=== PATIENT | female | born 1950 | race Caucasian/White ===

== ENCOUNTER 2017-04-04 08:00 | Outpatient (CLI) | payer MEDICARE, OTHER ==
[2017-04-04 19:34] LABS: CALCIUM 9.4 mg/dL (8.5-10.3); CREATININE 0.7 mg/dL (0.4-1.0); POTASSIUM 4.1 mmol/L (3.5-5.0)
== END 2017-04-04 08:01 | disposition home or self-care (01) ==
LOC: LAB.WCP 08:00
PROVIDERS: ATTEND Family Medicine
DX: I10 Essential (primary) hypertension (principal)
CPT/HCPCS: 36415; 80048

== ENCOUNTER 2017-04-11 15:33 | Outpatient (CLI) | payer MEDICARE, OTHER ==
--- NOTE | 2017-04-13 18:17 | Mammography Report ---
DIGITAL BILATERAL SCREENING MAMMOGRAM: 04/11/2017 COMPARISON EXAMINATION: Mammogram 06/14/2014. TECHNIQUE: Routine CC and MLO projections were obtained of the breasts. FINDINGS: Parenchymal tissue within both breasts is extremely dense, which lowers the sensitivity of mammography; however, there are no dominant masses, suspicious microcalcifications, or secondary sig ns of malignancy. In comparison to the previous studies, there are no significant changes. IMPRESSION: No mammographic evidence of malignancy. PLAN: Screening mammography is recommended annually. BIRADS category 1 - negative. STANDARD QUALIFYING STATEMENTS 1. This examination was reviewed with the aid of Computed-Aided Detection (CAD). 2. A negative or benign imaging report should not delay biopsy if clinically suspicious findings are present. Consider surgical consultation if warranted. More than 5% of cancers are not identified b y imaging. 3. Dense breasts may obscure an underlying neoplasm. JOB #: [id number] EXT JOB #:[id number]
== END 2017-04-11 15:34 | disposition home or self-care (01) ==
LOC: DI.N 15:33
PROVIDERS: ATTEND Family Medicine
DX: Z12.31 Encounter for screening mammogram for malignant neoplasm of breast (principal)
CPT/HCPCS: 77067

== ENCOUNTER 2018-03-15 14:10 | Outpatient (CLI) | payer MEDICARE, OTHER ==
[2018-03-15 19:48] LABS: BASOPHILS # (AUTO) 0.1 10^3/uL (0.0-0.1); EOSINOPHILS # (AUTO) 0.2 10^3/uL (0.0-0.7); HGB - HEMOGLOBIN 12.5 g/dL (12.0-16.0); LYMPHOCYTES # (AUTO) 1.8 10^3/uL (1.5-3.5); LYMPHOCYTES % (AUTO) 24.3 %; MEAN CORPUSCULAR HEMOGLOBIN 31.1 pg (27.0-31.0); MEAN CORPUSCULAR HGB CONC 33.9 g/dL (32.0-36.0); MEAN CORPUSCULAR VOLUME 91.8 fL (81.0-99.0); MONOCYTES # (AUTO) 0.5 10^3/uL (0.0-1.0); MONOCYTES % (AUTO) 6.7 %; NEUTROPHILS # (AUTO) 4.7 10^3/uL (1.5-6.6); PLT - PLATELET COUNT 345 10^3/uL (130-450); RED BLOOD COUNT 4.03 10^6/uL (4.20-5.40); RED CELL DISTRIBUTION WIDTH 13.4 % (12.0-15.0); WHITE BLOOD COUNT 7.2 x10^3/uL (4.8-10.8)
[2018-03-15 20:03] LABS: ALBUMIN/GLOBULIN RATIO 1.3 (1.0-2.2); ALKALINE PHOSPHATASE 67 IU/L (42-121); ALT ALANINE AMINOTRANSFERASE 18 IU/L (10-60); AST ASPARTATE AMINOTRANSFERASE 20 IU/L (10-42); BILIRUBIN,TOTAL 0.4 mg/dL (0.2-1.0); BUN - BLOOD UREA NITROGEN 24 mg/dL (6-20); CALCIUM 9.2 mg/dL (8.5-10.3); CARBON DIOXIDE - CO2 27 mmol/L (21-32); CHLORIDE 102 mmol/L (101-111); CHOL/HDL RATIO 3.6 (<4.4); CHOLESTEROL 292 mg/dL; CREATININE 0.9 mg/dL (0.4-1.0); GFR - MDRD 62 (>89); GLUCOSE 132 mg/dL (70-100); HDL CHOLESTEROL 81 mg/dL; LDL CHOLESTEROL,CALCULATED 169 mg/dL; LDL/HDL RATIO 2.1 (<4.4); SODIUM 138 mmol/L (135-145); TOTAL PROTEIN 7.2 g/dL (6.7-8.2); VLDL CHOLESTEROL 42 mg/dL
== END 2018-03-15 14:11 ==
LOC: LAB.WCP 14:10
PROVIDERS: ATTEND Family Medicine
DX: I10 Essential (primary) hypertension (principal)
CPT/HCPCS: 36415; 80053; 80061; 83721; 84443; 85025

== ENCOUNTER 2018-03-28 14:43 | Outpatient (CLI) | payer MEDICARE, OTHER ==
--- NOTE | 2018-03-31 15:24 | DEXA Report ---
Reason: BONE DISORDER Procedure Date: 03/28/2018 Accession Number: [id number] / [id number] Procedure: DEX - Dexa Spine and/or Hip CPT Code: FULL RESULT: EXAM: Dexa Spine and/or Hip DATE: 03/28/2018 3:50 PM CLINICAL HISTORY: BONE DISORDER TECHNIQUE: Dual energy x-ray absorptiometry (DXA) was performed on a [employer] System. Regions measured are the AP Spine, femoral neck, and if needed forearm. COMPARISON: None. In accordance with the International Society for Clinical Densitometry (ISCD) guidelines, data from previous exams may be reanalyzed using current recommendations and techniques. This is done to allow a more accurate basis for comparison with the current study. FINDINGS: The data for the lumbar spine is as follows: BMD (g/cm/cm) T-SCORE Z-SCORE REGION L1 1.341 1.8 3.3 L2 1.170 -0.3 1.3 L3 0.973 -1.9 -0.4 L4 1.165 -0.3 1.2 TOTAL 1.140 -0.3 1.2 NOTE: All evaluable vertebrae are used for classification The data for the hip is as follows: BMD (g/cm/cm) T-SCORE Z-SCORE REGION Neck 0.949 -0.6 0.9 TOTAL 0.996 -0.1 1.3 NOTE: The femoral neck or total proximal femur, whichever is lowest, is used for classification. IMPRESSION: THE WHO CLASSIFICATION BASED ON THE INTERNATIONAL REFERENCE STANDARD IS NORMAL. THE FRACTURE RISK IS NOT INCREASED. Please note that due to spinal scoliosis the spinal measurement is technically challenging and possibly inaccurate. There may be benefit in obtaining a radial DEXA in addition to the hip and spine in future examinations. RECOMMENDATION: Patients with diagnosis of osteoporosis or osteopenia should have regular bone mineral density assessment. For those eligible for Medicare, routine testing is allowed once every 2 years. Testing frequency can be increased for patients who have rapidly progressing disease or for those who are receiving medical therapy to restore bone mass. COMMENT: World Health Organization (WHO) definitions for osteoporosis and osteopenia: NORMAL BMD: T-score at -1.0 or higher, fracture risk is low OSTEOPENIA BMD: T-score between -1.0 and -2.5, fracture risk is increased. OSTEOPOROSIS BMD: T-score at -2.5 or lower, fracture risk is high. National Osteoporosis Foundation recommends: 1. Obtain adequate dietary calcium (at least 1200 mg per day) and vitamin D (400-800 international units per day). 2. Participate, as appropriate, in regular weightbearing and muscle-strengthening exercise. 3. Avoid tobacco use and reduce alcohol and caffeine intake. 4. For more detailed information see the website at www.NOF.org.
== END 2018-03-28 14:44 | disposition home or self-care (01) ==
LOC: DI 14:43
PROVIDERS: ATTEND Family Medicine
DX: M89.9 Disorder of bone, unspecified (principal)
CPT/HCPCS: 77080

== ENCOUNTER 2018-03-28 14:45 | Outpatient (CLI) | payer MEDICARE, OTHER ==
--- NOTE | 2018-03-29 10:28 | Mammography Report ---
Reason: BILAT SCREEN w AILYN Procedure Date: 03/28/2018 Accession Number: [id number] / [id number] Procedure: ANG - Screening Mammo w/Ailyn CPT Code: FULL RESULT: EXAM: Screening Mammo w/Ailyn DATE: 03/28/2018 3:26 PM CLINICAL HISTORY: 68-year-old female with family history of breast cancer in a cousin at age 55. TECHNIQUE: Bilateral CC and MLO views were obtained. Exaggerated right CC view was also obtained. COMPARISON: 04/11/2017, 06/14/2014, 01/26/2013, 03/31/2010. FINDINGS: The breasts demonstrate heterogeneously dense fibroglandular parenchyma bilaterally. Approximately 6.5 cm deep to the left nipple at the 6:00 position is a 1 cm well-circumscribed hyperdense mass which is now more conspicuous and not definitely present earlier than 2017. This requires additional evaluation by spot magnification views and ultrasound of the left breast. No suspicious masses, clustered microcalcifications, or regions of architectural distortion are identified in the right breast. IMPRESSION: Incomplete examination RECOMMENDATION: Additional evaluation as above. BIRADS CATEGORY 0: Incomplete examination STANDARD QUALIFYING STATEMENTS: 1. This examination was not reviewed with the aid of Computer-Aided Detection (CAD). 2. A negative or benign imaging report should not delay biopsy if clinically suspicious findings are present. Consider surgical consultation if warrented. More than 5% of cancers are not identified by imaging. 3. Dense breasts may obscure an underlying neoplasm. 4. This examination was reviewed with the aid of 3D breast imaging (tomosynthesis).
== END 2018-03-28 14:46 | disposition home or self-care (01) ==
LOC: DI 14:45
DX: Z12.31 Encounter for screening mammogram for malignant neoplasm of breast (principal); R92.8 Other abnormal and inconclusive findings on diagnostic imaging of breast; Z80.3 Family history of malignant neoplasm of breast
CPT/HCPCS: 77063; 77067

== ENCOUNTER 2018-04-11 08:59 | Outpatient (CLI) | payer MEDICARE, OTHER ==
--- NOTE | 2018-04-11 11:51 | Mammography Report ---
Reason: ABN MAMMO - LT SPEC VIEWS Procedure Date: 04/11/2018 Accession Number: [id number] / [id number] Procedure: ANG - Diag Special Views Dig LT CPT Code: FULL RESULT: EXAM: Diag Special Views Dig RT, Breast Unilateral Limited RT DATE: 04/11/2018 10:06 AM CLINICAL HISTORY: Follow-up abnormal mammogram. COMPARISON: 03/28/2018 RIGHT BREAST ADDITIONAL VIEWS: TECHNIQUE: Additional spot compression and true lateral views of the right breast with tomographic images. Additional lateral view of the left breast performed in error. FINDINGS: The described density in the posterior right breast 6:00 position 6.5 cm from the nipple questionably persists on additional views. No definite mass is seen. RIGHT BREAST ULTRASOUND: TECHNIQUE: Real-time scanning by the modular set crew member was saved static images reviewed. FINDINGS: No cystic or solid mass, abnormal fluid collection, posterior shadowing, or other abnormality. IMPRESSION: Negative. RECOMMENDATION: Return to routine screening in 12 months. BIRADS CATEGORY 1: Negative STANDARD QUALIFYING STATEMENTS: 1. This examination was reviewed with the aid of Computer-Aided Detection (CAD). 2. A negative or benign imaging report should not delay biopsy if clinically suspicious findings are present. Consider surgical consultation if warrented. More than 5% of cancers are not identified by imaging. 3. Dense breasts may obscure an underlying neoplasm.
== END 2018-04-11 09:00 | disposition home or self-care (01) ==
LOC: DI 08:59
PROVIDERS: ATTEND Family Medicine
DX: R92.8 Other abnormal and inconclusive findings on diagnostic imaging of breast (principal)
CPT/HCPCS: 76642

== ENCOUNTER 2022-04-20 14:19 | Outpatient (CLI) | payer MEDICARE, OTHER ==
--- NOTE | 2022-04-21 12:13 | Mammography Report ---
BILATERAL DIGITAL SCREENING MAMMOGRAM 3D/2D: 04/20/2022 CLINICAL: Routine screening. Comparison is made to exams dated: 04/11/2018 mammogram, 03/28/2018 mammogram, and 04/11/2017 mammogr am - [facility]. Both breasts are heterogeneously dense, which may obscure small masses (category c / 51-75% glandular tissue). There is a new oval mass with a circumscribed margin in the right breast at 6 o'clock posterior depth . No other significant masses, calcifications, or other findings are seen in either breast. IMPRESSION: INCOMPLETE: NEEDS ADDITIONAL IMAGING EVALUATION The new oval mass in the right breast is indeterminate. Additional views with possible ultrasound ar e recommended. Based on the Tyrer Cuzick model (a risk assessment model) the patients lifetime risk is 3.8% and her 10 year risk is 3.5%. According to the ACR, ACS, and NCCN guidelines, an annual breast MRI exam taylor g with mammogram is recommended if the patients lifetime risk is 20% or greater. This exam was interpreted at Station ID: [id number]. NOTE: For mammograms, a report in lay terms will be sent to the patient. Approximately 15% of breast malignancies will not be visualized mammographically. In the management of a palpable breast mass, a negative mammogram must not discourage biopsy of a clinically suspicious lesion. Electronically Signed By: Norris lucas/ashley:04/20/2022 16:45:38 ACR BI-RADS Category 0: Incomplete 3340F PARENCHYMAL PATTERN: (D) - The breast(s) demonstrate(s) heterogeneously dense fibroglandular [place]. BI-RADS CATEGORY: (0) - 0 Mammo and [place] [id number] Immediate follow-up LATERALITY: (R)
== END 2022-04-20 14:20 | disposition home or self-care (01) ==
LOC: DI.N 14:19
DX: Z12.31 Encounter for screening mammogram for malignant neoplasm of breast (principal); R92.8 Other abnormal and inconclusive findings on diagnostic imaging of breast

== ENCOUNTER 2022-04-30 09:33 | Outpatient (CLI) | payer MEDICARE, OTHER ==
[2022-04-30 09:53] LABS: BASOPHILS # (AUTO) 0.1 10^3/uL (0.0-0.1); BASOPHILS % (AUTO) 0.8 %; EOSINOPHILS # (AUTO) 0.3 10^3/uL (0.0-0.7); EOSINOPHILS % (AUTO) 4.3 %; HCT - HEMATOCRIT 40.5 % (37.0-47.0); HGB - HEMOGLOBIN 12.7 g/dL (12.0-16.0); LYMPHOCYTES % (AUTO) 26.6 %; MEAN CORPUSCULAR HEMOGLOBIN 29.1 pg (27.0-31.0); MEAN CORPUSCULAR HGB CONC 31.4 g/dL (32.0-36.0); MEAN CORPUSCULAR VOLUME 92.9 fL (81.0-99.0); MONOCYTES # (AUTO) 0.6 10^3/uL (0.0-1.0); MONOCYTES % (AUTO) 7.5 %; NEUTROPHILS # (AUTO) 4.6 10^3/uL (1.5-6.6); NEUTROPHILS % (AUTO) 60.4 %; PLT - PLATELET COUNT 379 10^3/uL (130-450); RED BLOOD COUNT 4.36 10^6/uL (4.20-5.40); RED CELL DISTRIBUTION WIDTH 13.1 % (12.0-15.0); WHITE BLOOD COUNT 7.6 x10^3/uL (4.8-10.8)
[2022-04-30 10:21] LABS: ALBUMIN 4.1 g/dL (3.2-5.5); ALBUMIN/GLOBULIN RATIO 1.1 (1.0-2.2); ALKALINE PHOSPHATASE 72 IU/L (42-121); ALT ALANINE AMINOTRANSFERASE 16 IU/L (10-60); AST ASPARTATE AMINOTRANSFERASE 18 IU/L (10-42); BILIRUBIN,TOTAL 0.4 mg/dL (0.2-1.0); BUN - BLOOD UREA NITROGEN 12 mg/dL (6-20); CALCIUM 9.2 mg/dL (8.5-10.3); CARBON DIOXIDE - CO2 28 mmol/L (21-32); CHLORIDE 95 mmol/L (101-111); CHOL/HDL RATIO 2.9 (<4.4); CHOLESTEROL 291 mg/dL; CREATININE 0.7 mg/dL (0.4-1.0); GFR - MDRD 82 (>89); GLUCOSE 102 mg/dL (70-100); HDL CHOLESTEROL 101 mg/dL; LDL CHOLESTEROL,CALCULATED 172 mg/dL; LDL/HDL RATIO 1.7 (<4.4); POTASSIUM 4.2 mmol/L (3.5-5.0); SODIUM 133 mmol/L (135-145); TOTAL PROTEIN 7.7 g/dL (6.7-8.2); TRIGLYCERIDES 89 mg/dL; VLDL CHOLESTEROL 18 mg/dL
[2022-04-30 10:25] LABS: THYROID STIMULATING HORMONE 2.73 uIU/mL (0.34-5.60)
[2022-04-30 11:59] LABS: ESTIMATED AVERAGE GLUCOSE 140 mg/dL (70-100); HEMOGLOBIN A1c% 6.5 % (4.27-6.07)
== END 2022-04-30 09:34 | disposition home or self-care (01) ==
LOC: LAB 09:33
PROVIDERS: ATTEND Physician Assistant
DX: I10 Essential (primary) hypertension (principal); E78.5 Hyperlipidemia, unspecified; R73.01 Impaired fasting glucose
CPT/HCPCS: 36415; 80053; 80061; 83036; 83721; 84443; 85025

== ENCOUNTER 2022-04-30 09:36 | Outpatient (CLI) | payer MEDICARE, OTHER ==
--- NOTE | 2022-05-03 10:23 | Ultrasound Report ---
LIMITED ULTRASOUND OF RIGHT BREAST: 04/30/2022 CLINICAL: Patient returns today to evaluate a focal asymmetry in the right breast. Comparison is made to exams dated: 04/30/2022 mammogram, 04/20/2022 mammogram, and 03/28/2018 mammogra [facility]. Color flow and real-time ultrasound of the right breast 6 o'clock region were performed. Fernandez scale images of the real-time examination were reviewed. There is a benign 2.4 cm x 2.1 cm x 1 cm oval cyst with a smooth internal wall in the right breast at 6 o'clock middle depth 2 cm from the nipple. This oval cyst is anechoic with posterior acoustic enh ancement. This correlates with mammography findings. Color flow imaging demonstrates that there is no vascularity present. IMPRESSION: BENIGN There is no sonographic evidence of malignancy. The 2.4 cm x 2.1 cm x 1 cm oval cyst in the right breast is consistent with a simple cyst and is meena gn. Return to annual mammogram screening schedule is recommended. This exam was interpreted at Station ID: [id number]. Electronically Signed By: Norris lucas/ashley:04/30/2022 16:44:55 Ultrasound BI-RADS: 2 Benign BI-RADS CATEGORY: (2) - 2 Mammogram [id number] return to screening LATERALITY: (B)
--- NOTE | 2022-05-03 10:23 | Mammography Report ---
UNILATERAL RIGHT DIGITAL DIAGNOSTIC MAMMOGRAM 3D/2D WITH SPOT COMPRESSION: 04/30/2022 CLINICAL: Patient returns for additional imaging over a suspected mass in the right breast. Comparison is made to exams dated: 04/20/2022 mammogram, 04/11/2018 mammogram, 03/28/2018 mammogram, a nd 04/11/2017 mammogram - [facility]. The right breast is heterogeneously dense, which may obscure small masses (category c / 51-75% glandu lar tissue). There is a new oval mass with a circumscribed margin in the right breast at 6 o'clock posterior depth . This is seen in additional views. No other significant masses or calcifications are seen in the breast. IMPRESSION: INCOMPLETE: NEEDS ADDITIONAL IMAGING EVALUATION The new oval mass in the right breast is indeterminate. An ultrasound is recommended. Based on the Tyrer Cuzick model (a risk assessment model) the patients lifetime risk is 4.5% and her 10 year risk is 4.0%. According to the ACR, ACS, and NCCN guidelines, an annual breast MRI exam taylor g with mammogram is recommended if the patients lifetime risk is 20% or greater. This exam was interpreted at Station ID: [id number]. NOTE: For mammograms, a report in lay terms will be sent to the patient. Approximately 15% of breast malignancies will not be visualized mammographically. In the management of a palpable breast mass, a negative mammogram must not discourage biopsy of a clinically suspicious lesion. Electronically Signed By: Norris lucas/ashley:04/30/2022 16:43:42 ACR BI-RADS Category 0: Incomplete 3340F PARENCHYMAL PATTERN: (D) - The breast(s) demonstrate(s) heterogeneously dense fibroglandular [place]. BI-RADS CATEGORY: (0) - 0 Ultrasound [id number] Immediate follow-up LATERALITY: (R)
== END 2022-04-30 09:37 | disposition home or self-care (01) ==
LOC: DI 09:36
PROVIDERS: ATTEND Physician Assistant
DX: N60.01 Solitary cyst of right breast (principal); I10 Essential (primary) hypertension; R73.01 Impaired fasting glucose
CPT/HCPCS: 36415; 80053; 80061; 83036; 83721; 84443; 85025

== ENCOUNTER 2022-10-11 06:43 | Emergency (ER) | payer MEDICARE, OTHER ==
[2022-10-11 06:55] VITALS: BP 142/75
--- NOTE | 2022-10-11 07:00 | ED Physician Documentation ---
PD HPI LOWER EXT INJURY - Stated complaint Stated Complaint: HIP PX - Chief complaint Chief Complaint: Ext Problem - History obtained from History obtained from: Patient - History of Present Illness PD HPI LOW EXT INJURY LOCATION: Right, Buttock (upper to mid right SI joint area.) Type of injury: Other (she and spouse had been on several day car ride and back about a week ago. Pt states she has been doing housework and cleaning since return, with lots of bending and repetitive movements. No abrupt onset of pain.). No: Fall, Twist Where injury occurred: Home Timing - onset: Today (awoke with low back pain at SI area this morning, increased to palpation and torsional/bending movement.). No: Last night, Yesterday Timing - duration: Hours Timing - details: Abrupt onset, Still present Worsened by: Moving, Palpating Associated symptoms: No: Weakness, Numbness, Swelling, Discolored Similar symptoms before: Has not had sx before Recently seen: Not recently seen Review of Systems Constitutional: denies: Fever, Chills Nose: denies: Rhinorrhea / runny nose, Congestion Throat: denies: Sore throat Cardiac: denies: Chest pain / pressure Respiratory: denies: Dyspnea, Cough GI: denies: Abdominal Pain, Nausea, Vomiting, Constipation, Diarrhea Skin: denies: Rash, Lesions Neurologic: denies: Focal weakness, Numbness PD PAST MEDICAL HISTORY - Past Medical History Cardiovascular: None Neuro: None Musculoskeletal: Chronic back pain (often with some element of low back pain, but not in area nor severity as the current episode. ) - Present Medications Home Medications: Ambulatory Orders Medication Instructions Recorded Confirmed Lidocaine Patch 5% [Lidoderm Patch] 1 patch TOP DAILY PRN #10 patch 10/11/22 Losartan Potassium [Cozaar] 100 mg PO DAILY 10/11/22 10/11/22 Meloxicam [Mobic] 7.5 mg PO BID 10 Days #20 tablet 10/11/22 amLODIPine [Norvasc] 5 mg PO HS 10/11/22 10/11/22 methocarbamoL [Robaxin] 500 mg PO Q6H PRN #20 tablet 10/11/22 oxyCODONE [Roxicodone] 5 mg PO Q6H PRN #14 tablet 10/11/22 - Allergies Allergies/Adverse Reactions: Allergies Allergy/AdvReac Type Severity Reaction Status Date / Time No Known Drug Allergies Allergy Verified 10/11/22 06:55 PD ED PE NORMAL - Vitals Vital signs reviewed: Yes - General General: Alert and oriented X 3, Well developed/nourished, Other (appears in pain and lying left side down. Tender in right SI area.) - Abdomen Abdomen: Soft, Non tender - Back Back: No CVA TTP, No spinal TTP, Other (tender at right SI area without rash nor tenderness. ) - Derm Derm: Normal color, Warm and dry, No rash Results - Vitals Vitals: Vital Signs - 24 hr 10/11/22 06:53 Temperature 37.1 C Heart Rate 68 Respiratory 17 Rate Blood Pressure 142/75 H O2 Saturation 99 Oxygen O2 Source Room air PD Medical Decision Making - ED course Complexity details: reviewed results (She does have muscular point tenderness in the SI joint. No red flags per se. Considered but opted not to get any imaging at this time with low suspicion for vertebral or spinal abnormality.), considered differential (Pain in the right sacroiliac area without any radiation. No lower extremity weakness or numbness. No skin sensitivity rash no sores. She states she has been doing a lot of lifting and cleaning and housework after returning from a trip. Seems musculoskeletal. No red flags per se aside from age.), d/w patient Departure - Departure Disposition: 01 Home, Self Care Clinical Impression: Acute low back pain Qualifiers: Back pain laterality: right Sciatica presence: without sciatica Qualified Code(s): M54.50 - Low back pain, unspecified Condition: Stable Record reviewed to determine appropriate education?: Yes Instructions: ED Low Back Pain Injury Prescriptions: Lidocaine Patch 5% [Lidoderm Patch] 1 patch TOP DAILY PRN #10 patch PRN Reason: pain Meloxicam [Mobic] 7.5 mg PO BID 10 Days #20 tablet methocarbamoL [Robaxin] 500 mg PO Q6H PRN #20 tablet PRN Reason: Spasms oxyCODONE [Roxicodone] 5 mg PO Q6H PRN #14 tablet PRN Reason: Pain Comments: Low back pain and particularly in muscle areas like the iliac crest and SI joint such as yours are relatively common. Without a particular forceful injury or other symptoms to suggest other than musculoskeletal pain (such as belly pain too, fever, radiating pain, rash, etc.) then we typically treat as musculoskeletal pain with a combination of anti-inflammatories, muscle relaxants and add pain medicine and physical treatments. You said Advil did not really help; we can try a different anti-inflammatory. I wrote for 1 called meloxicam which is just twice daily. To that add methocarbamol if needed for spasms and stiffness. You can also place a lidocaine patch in the area and see if that helps as well. Physical treatment such as stretching, massage, chiropractic may be helpful. Add Tylenol 650 mg 4 times daily as needed for pain. To that add oxycodone every 6 hours if needed for worse pain. This would be intended short-term. The majority of episodes like this will improve over a week or 2 with the worst being the first several days. Recheck if not improving in a good timeframe or if you develop other symptoms as well. I sent your prescription to [facility] pharmacy. I am prescribing a short course of narcotic pain medication for you. These are potentially dangerous and addictive medications that should be used carefully. These medications may constipate you. Take an fher-bdm-slleysh stool softener such as docusate twice daily with plenty of water while taking these medications. If you go 24 hours without a bowel movement, take [id number] MiraLAX, per package instructions. Do not drink or drive while taking these medications. If you received narcotic or sedating medications while in the emergency department do not drive for 24 hours. Store this medication in a safe, secure place and out of reach of children. It is a violation of federal law to give or sell this medication to another person or to use in a manner other than prescribed. The ED will not refill narcotic prescriptions, including prescriptions lost or stolen. You can dispose of unwanted medications at the [facility]'s office or at several pharmacies such as [facility]. Discharge Date/Time: 10/11/22 07:55
[2022-10-11] MEDS ORDERED: ACETAMINOPHEN 325 MG TABLET PO STA (07:24)
[2022-10-11] MEDS ORDERED: KETOROLAC 30 MG/ML VIAL IM STA (07:24)
[2022-10-11] MEDS ORDERED: oxyCODONE 5 MG TABLET PO STA (07:24)
== END 2022-10-11 07:55 | disposition home or self-care (01) ==
LOC: ED 06:43
DX: M54.50 Low back pain, unspecified (principal)
CPT/HCPCS: 96372; 99283; 99284; A9270

== ENCOUNTER 2023-04-22 08:26 | Outpatient (CLI) | payer MEDICARE, OTHER ==
[2023-04-22 08:40] LABS: BASOPHILS # (AUTO) 0.1 10^3/uL (0.0-0.1); BASOPHILS % (AUTO) 1.1 %; EOSINOPHILS # (AUTO) 0.3 10^3/uL (0.0-0.7); EOSINOPHILS % (AUTO) 4.4 %; HCT - HEMATOCRIT 38.6 % (37.0-47.0); HGB - HEMOGLOBIN 12.4 g/dL (12.0-16.0); LYMPHOCYTES # (AUTO) 2.1 10^3/uL (1.5-3.5); LYMPHOCYTES % (AUTO) 28.1 %; MEAN CORPUSCULAR HEMOGLOBIN 29.5 pg (27.0-31.0); MEAN CORPUSCULAR HGB CONC 32.1 g/dL (32.0-36.0); MEAN CORPUSCULAR VOLUME 91.7 fL (81.0-99.0); MEAN PLATELET VOLUME 8.8 fL (7.9-10.8); MONOCYTES # (AUTO) 0.6 10^3/uL (0.0-1.0); MONOCYTES % (AUTO) 7.9 %; NEUTROPHILS # (AUTO) 4.2 10^3/uL (1.5-6.6); NEUTROPHILS % (AUTO) 58.1 %; PLT - PLATELET COUNT 369 10^3/uL (130-450); RED BLOOD COUNT 4.21 10^6/uL (4.20-5.40); RED CELL DISTRIBUTION WIDTH 12.8 % (12.0-15.0); WHITE BLOOD COUNT 7.3 x10^3/uL (4.8-10.8)
[2023-04-22 08:58] LABS: ALBUMIN 4.1 g/dL (3.2-5.5); CHOL/HDL RATIO 3.1 (<4.4); CHOLESTEROL 264 mg/dL; HDL CHOLESTEROL 86 mg/dL; LDL CHOLESTEROL,CALCULATED 156 mg/dL; LDL/HDL RATIO 1.8 (<4.4); TRIGLYCERIDES 112 mg/dL (48-352); VLDL CHOLESTEROL 22 mg/dL
[2023-04-22 09:07] LABS: ALBUMIN/GLOBULIN RATIO 1.2 (1.0-2.2); ALKALINE PHOSPHATASE 67 IU/L (42-121); ALT ALANINE AMINOTRANSFERASE 13 IU/L (10-60); AST ASPARTATE AMINOTRANSFERASE 19 IU/L (10-42); BILIRUBIN,TOTAL 0.5 mg/dL (0.2-1.0); BUN - BLOOD UREA NITROGEN 14 mg/dL (6-20); CALCIUM 9.3 mg/dL (8.5-10.3); CARBON DIOXIDE - CO2 33 mmol/L (21-32); CHLORIDE 100 mmol/L (101-111); CREATININE 0.7 mg/dL (0.6-1.3); GFR - MDRD 82 (>89); GLUCOSE 93 mg/dL (74-104); POTASSIUM 4.3 mmol/L (3.5-4.5); SODIUM 136 mmol/L (135-145); TOTAL PROTEIN 7.6 g/dL (6.4-8.9)
[2023-04-22 09:12] LABS: THYROID STIMULATING HORMONE 3.86 uIU/mL (0.34-5.60)
== END 2023-04-22 08:27 | disposition home or self-care (01) ==
LOC: LAB 08:26
PROVIDERS: ATTEND Physician Assistant
DX: I10 Essential (primary) hypertension (principal); E78.5 Hyperlipidemia, unspecified
CPT/HCPCS: 36415; 80053; 80061; 83721; 84443; 85025

== ENCOUNTER 2023-05-11 11:21 | Outpatient (CLI) | payer MEDICARE, OTHER ==
--- NOTE | 2023-05-13 09:34 | Mammography Report ---
BILATERAL DIGITAL SCREENING MAMMOGRAM 3D/2D: 05/11/2023 CLINICAL: Routine screening. Comparison is made to exams dated: 04/30/2022 mammogram, 04/20/2022 mammogram, 04/11/2018 mammogram, 03/28/2018 mammogram, 04/11/2017 mammogram, and 06/14/2014 mammogram - [facility]. Both breasts are heterogeneously dense, which may obscure small masses (category c / 51-75% glandular tissue). There is a benign cyst in the right breast. No significant masses, calcifications, or other findings are seen in either breast. There has been no significant interval change. IMPRESSION: BENIGN There is no mammographic evidence of malignancy. A 1 year screening mammogram is recommended. Based on the Tyrer Cuzick model (a risk assessment model) the patients lifetime risk is 4.0% and her 10 year risk is 4.0%. According to the ACR, ACS, and NCCN guidelines, an annual breast MRI exam taylor g with mammogram is recommended if the patients lifetime risk is 20% or greater. This exam was interpreted at Station ID: [id number]. NOTE: For mammograms, a report in lay terms will be sent to the patient. Approximately 15% of breast malignancies will not be visualized mammographically. In the management of a palpable breast mass, a negative mammogram must not discourage biopsy of a clinically suspicious lesion. Electronically Signed By: Norris lucas/ashley:05/11/2023 16:16:54 letter sent: No_Letter ACR BI-RADS Category 2: Benign Finding(s) 3342F PARENCHYMAL PATTERN: (D) - The breast(s) demonstrate(s) heterogeneously dense fibroglandular [place]. BI-RADS CATEGORY: (2) - 2 Mammogram [id number] 1 year screening LATERALITY: (B)
== END 2023-05-11 11:22 | disposition home or self-care (01) ==
LOC: DI 11:21
DX: Z12.31 Encounter for screening mammogram for malignant neoplasm of breast (principal); R92.333 Mammographic heterogeneous density, bilateral breasts

== ENCOUNTER 2023-06-23 06:11 | Day surgery (SDC) | payer MEDICARE, OTHER ==
[2023-06-23] MEDS ORDERED: LACTATED RINGERS 1,000 ML IV ONE ×2 (06:18→08:29)
--- NOTE | 2023-06-23 07:25 | ANESTHESIA ---
Pre-Anesthesia VS, & Labs - Diagnosis screening exam - Procedure colonoscopy Vital Signs: Temp Pulse Resp BP Pulse Ox O2 Flow Rate 36.7 C 78 18 153/78 H 95 0 06/23/23 06:30 06/23/23 06:30 06/23/23 06:30 06/23/23 06:30 06/23/23 06:30 06/23/23 06:30 Height: 5 ft 5 in Weight (kg): 71 kg Body Mass Index: 26.0 BMI Classification: Overweight - NPO >8 hours - Is Patient ?: No Home Medications and Allergies Losartan Potassium [Cozaar] 100 mg PO DAILY 10/11/22 amLODIPine [Norvasc] 5 mg PO HS 10/11/22 Allergies/Adverse Reactions: Allergies Allergy/AdvReac Type Severity Reaction Status Date / Time No Known Drug Allergies Allergy Verified 10/11/22 06:55 Anes History & Medical History - Anesthetic History Anesthesia Complications: reports: No previous complications - Medical History Cardiovascular: reports: Hypertension Pulmonary: reports: None Gastrointestinal: reports: None Urinary: reports: None Neuro: reports: None Musculoskeletal: reports: Osteoarthritis, Chronic back pain Endocrine/Autoimmune: reports: None Skin: reports: None Smoking Status: Never smoker Psychosocial: reports: Anxiety History of Cancer?: No - Surgical History Orthopedic: reports: Other (scoliosis repair at age 13) Exam General: Alert, Oriented x3, Cooperative, No acute distress Dental: Dentures full Upper, Dentures full Lower Mouth Openin Fingerbreadth Neck Mobility: Normal Mallampati classification: IV Thyromental Distance: less than 4 cm Mental/Cognitive Status: Alert/Oriented X3, Normal for patient Plan Anesthesia Type: General, Total IV Consent for Procedure(s) Verified and Reviewed: Yes Code Status: Attempt Resuscitation ASA classification: 2-Mild systemic disease Is this case an emergency?: No
[2023-06-23] MEDS ORDERED: GLYCOPYRROLATE 1 MG/5 ML VIAL ONE (08:37)
[2023-06-23] MEDS ORDERED: PROPOFOL 500 MG/50 ML 500 MG/50 ML VIAL ONE (08:37)
[2023-06-23 08:48] VITALS: BP 102/56; O2SAT 98
--- NOTE | 2023-06-23 10:43 | ANESTHESIA POST OP EVALUATION ---
Anesthesia Post Eval - Post Anesthesia Eval Vitals: Last Vital Signs Temp 36.7 C 06/23/23 08:30 Pulse 70 06/23/23 08:42 Resp 18 06/23/23 08:42 BP 102/56 L 06/23/23 08:42 Pulse Ox 98 06/23/23 08:42 O2 Flow Rate 0 06/23/23 06:30 CV Function Including HR & BP: Stable Pain Control: Satisfactory Nausea & Vomiting: Negative Mental Status: Baseline Respiratory Status: Airway Patent Hydration Status: Satisfactory Anesthesia Complications: None
== END 2023-06-23 06:12 | disposition home or self-care (01) ==
LOC: SDS 06:11
PROVIDERS: ATTEND Surgery
PROC: 0DBL8ZZ Excision of Transverse Colon, Via Natural or Artificial Opening Endoscopic (ICD-10-PCS; 2023-06-23)
PROC: 0DBN8ZX Excision of Sigmoid Colon, Via Natural or Artificial Opening Endoscopic, Diagnostic (ICD-10-PCS; 2023-06-23)
PROC: 0DBP8ZX Excision of Rectum, Via Natural or Artificial Opening Endoscopic, Diagnostic (ICD-10-PCS; principal; 2023-06-23 07:30)
DX: Z12.11 Encounter for screening for malignant neoplasm of colon (principal); D12.3 Benign neoplasm of transverse colon; K52.9 Noninfective gastroenteritis and colitis, unspecified; K57.30 Diverticulosis of large intestine without perforation or abscess without bleeding; R94.31 Abnormal electrocardiogram [ECG] [EKG]; I10 Essential (primary) hypertension
CPT/HCPCS: 45380; 93005; J7120

== ENCOUNTER 2023-12-30 18:06 | Emergency (ER) | payer MEDICARE, OTHER ==
[2023-12-30 18:20] VITALS: BP 166/76; O2SAT 99
--- NOTE | 2023-12-30 19:43 | ED Physician Documentation ---
History of Present Illness - Stated complaint Stated Complaint: R EAR PX - Chief complaint Chief Complaint: Heent - History obtained from History obtained from: Patient - Additonal information Additional information: She been having ongoing pain inferior to the right ear for about 10 days. About 5 days ago went to the clinic and was prescribed antibiotics. I queried if they told her she had an ear infection and she said that it really was not explained what was wrong with her. Despite that, she has been on a antibiotic Augmentin for 5 days, she has not improved. She denies respiratory symptoms, fevers, ear hearing loss. PD PAST MEDICAL HISTORY - Past Medical History Cardiovascular: Hypertension Respiratory: None Neuro: None Endocrine/Autoimmune: None GI: None : None Psych: Anxiety Musculoskeletal: Osteoarthritis, Chronic back pain Derm: None - Past Surgical History Ortho: Other - Present Medications Home Medications: Ambulatory Orders Medication Instructions Recorded Confirmed Losartan Potassium [Cozaar] 100 mg PO DAILY 10/11/22 06/22/23 amLODIPine [Norvasc] 5 mg PO HS 10/11/22 06/22/23 HYDROcod/ACETAM 5/325 [Grandin 5/325] 1 - 2 tab PO Q6H PRN #15 tablet 12/30/23 - Allergies Allergies/Adverse Reactions: Allergies Allergy/AdvReac Type Severity Reaction Status Date / Time No Known Drug Allergies Allergy Verified 10/11/22 06:55 - Social History Does the pt smoke?: No Smoking Status: Never smoker - Immunizations Immunizations are current?: Yes PD ED PE NORMAL - Vitals Vital signs reviewed: Yes - General General: Alert and oriented X 3, No acute distress - HEENT HEENT: PERRL, EOMI, Other (She actually points to an area inferior to the ear as the site of pain. The TM is normal. She has no TMJ tenderness. Full range of motion of the jaw. She is edentulous with dentures. No facial tenderness. No neck tenderness. No redness.) - Neck Neck: Supple, no meningeal sign, No bony TTP - Back Back: No CVA TTP, No spinal TTP - Derm Derm: Normal color, Warm and dry - Neuro Neuro: Alert and oriented X 3, Normal speech Results - Vitals Vitals: Vital Signs - 24 hr 12/30/23 18:13 Temperature 36.5 C Heart Rate 75 Respiratory 16 Rate Blood Pressure 166/76 H O2 Saturation 99 Oxygen O2 Source Room air PD Medical Decision Making - ED course ED course: She has pain inferior to the right ear of unclear etiology. Here exam is normal with no otitis. She was advised to discontinue Augmentin and follow-up with ENT. Departure - Departure Disposition: 01 Home, Self Care Clinical Impression: Facial pain Condition: Good Record reviewed to determine appropriate education?: Yes Instructions: ED Acute Pain [facility] Prescriptions: HYDROcod/ACETAM 5/325 [Grandin 5/325] 1 - 2 tab PO Q6H PRN #15 tablet PRN Reason: Pain Comments: I sent your prescription electronically to the [facility] in [place]. As discussed, the cause of your pain is unclear. The eardrum looks fairly normal and the rest of the exam looks normal as well. As such I would recommend you follow-up with a specialist, the closest [facility] bil[facility] shear operator is in [place]. Their phone number is [phone]. I am prescribing a short course of narcotic pain medication for you. These are potentially dangerous and addictive medications that should be used carefully. These medications may constipate you. Take an qhws-nvh-ifddnya stool softener (docusate) twice daily with plenty of water while taking these medications. If you go 24 hours without a bowel movement, take [id number] miralax, per package instructions. Do not drink or drive while taking these medications. If you received narcotic or sedating medications while in the emergency department, do not drive for 24 hours. Store this medication in a safe, secure place and out of reach of children. It is a violation of federal law to give or sell this medication to another person or to use in a manner other than prescribed. The ED will not refill narcotic prescriptions, including prescriptions lost or stolen. To dispose of unwanted medications: 1. [facility] provides a drop box for medication in pill form only (no liquids) 8:00 am to 4:30 p.m. Tuesday-Tuesday in the lobby of the [facility], [address] [place] [address]. Empty pills into ziplock bag before disposal. Call [phone] for information. 2.[employer] is a free service available to all [facility] residents. Go to [email or web address] Note that many narcotic pain relievers also contain Tylenol/acetaminophen. Please ensure that your total dose of acetaminophen from all sources does not exceed 3 g (3000 mg) per day. Forms: PCP List
== END 2023-12-30 19:48 | disposition home or self-care (01) ==
LOC: ED 18:06
DX: R51.9 Headache, unspecified (principal)
CPT/HCPCS: 99282; 99283

== ENCOUNTER 2024-02-28 08:00 | Outpatient (CLI) | payer MEDICARE, OTHER | END 2024-02-28 23:59 | disposition home or self-care (01) | LOC: LAB.S 08:00 | PROVIDERS: ATTEND Physician Assistant Medical | DX: N39.0 Urinary tract infection, site not specified (principal) | CPT/HCPCS: 87077; 87086; 87181 ==